=== PATIENT | male | born 1955 | race Caucasian/White ===

== ENCOUNTER → 2017-06-30 | Outpatient (CLI) | payer BC ==
--- NOTE | 2017-06-30 10:00 | US ---
EXAMINATION TYPE: US scrotum with doppler. DATE OF EXAM: 06/30/2017 COMPARISON: NONE CLINICAL HISTORY: 62-year-old male left N50.82 SCROTAL PAIN. Technique: Grayscale and color Doppler Duplex imaging performed of the scrotum. FINDINGS: TESTICLES: Right Testicle: 4.8 x 2.8 x3.2 cm Left Testicle: 4.4 x 2.5 x 2.9 cm Homogeneous echotexture of both testicles without hyperemia. There is satisfactory arterial and venou s flow demonstrated. EPIDIDYMIS HEAD: Right Epididymis: 0.8 cm Left Epididymis: 0.8 cm Presence of hydroceles: Yes, moderate-sized, right greater than left measuring up to 5.5 and 4.7 cm, respectively. Presence of varicoceles: no Extratesticular, hypoechoic area with hyperechoic inner focus of unknown etiology on the left measure s approximately 5 mm. IMPRESSION: 1. No sonographic evidence for testicular torsion or epididymoorchitis. 2. Moderate-sized right greater than left hydroceles. 3. Nonspecific 5 mm round area in the left hemiscrotum outside of the testicle with a central calcifi cation. Etiology uncertain. Possible phlebolith or calcifying scrotal la nena. Difficult to assess if i t is located in the epididymis in which case an adenomatoid tumor or other benign tumor is also possi ble. Consider follow-up in 3 months to reassess.
== END | disposition home or self-care (01) ==
LOC: RADUSWWP 08:08
PROVIDERS: ATTEND Family Medicine
DX: N43.3 Hydrocele, unspecified (principal); N50.82 Scrotal pain
CPT/HCPCS: 76870; 93975

== ENCOUNTER → 2017-09-29 | Outpatient (CLI) | payer BC ==
--- NOTE | 2017-09-29 13:05 | US ---
EXAMINATION TYPE: US scrotum with doppler. Grayscale and color Doppler Duplex imaging performed of t he scrotum. DATE OF EXAM: 09/29/2017 COMPARISON: Scrotal ultrasound June 30, 2017 CLINICAL HISTORY: R93.8 Abnormal ultrasound of scrotum; follow up EXAM MEASUREMENTS: TESTICLES: Right Testicle: 4.5 x 3.0 x 2.9 cm Left Testicle: 4.4 x 2.9 x 2.3 cm EPIDIDYMIS HEAD: Right Epididymis: 1.1 x 2.0 x 1.4 cm Left Epididymis: 3.3 x 3.3 x 1.6 cm Doppler performed to assess for testicular vascularity; good bilateral color flow and waveforms are s een. Right scrotal sac hydrocele is seen = 6.1 x 2.2 x 2.5cm with low level internal echoes in posterior p ortion. Small right testicular appendix is noted = 0.3 x 0.2 x 0.2cm. Left scrotal sac hydrocele is imaged = 1.4x 2.6 x 1.8cm. Multiple left epididymal head cysts are note d with largest = 1.5 x 1.3 x1.0cm. Posterior oval structure with internal calcification noted last US , that was area of interest, is elongated on today's US and appears as part of tubular vas deferens/e pididymis, and is compared to same area on right. There is persistent moderate-sized right scrotal fluid collection which is not completely anechoic si milar to prior. Color images are unremarkable. There is small left scrotal fluid collection or hydrocele redemonstrated. Left epididymis on current study is enlarged with several simple appearing cysts. Prior visualized left epididymis may have been incorrectly identified as normal epididymis as only 2 images show structure on prior study. Area of concern on prior exam within scrotum posterior to left testicle shows tubular shaped on current study , I suspect this is part of normal vas deferens. IMPRESSION: As above. No worrisome intratesticular mass. Persistent hydroceles. Area of concern on pr ior ultrasound left scrotal mass is presumed benign.
== END | disposition home or self-care (01) ==
LOC: RADUSWWP 10:50
PROVIDERS: ATTEND Family Medicine
DX: N50.3 Cyst of epididymis (principal); N43.3 Hydrocele, unspecified; N50.89 Other specified disorders of the male genital organs
CPT/HCPCS: 76870; 93975

== ENCOUNTER → 2017-11-02 | Outpatient (CLI) | payer BC ==
--- NOTE | 2017-11-02 14:53 | CT ---
EXAMINATION TYPE: CT shoulder LT wo con DATE OF EXAM: 11/02/2017 COMPARISON: NONE HISTORY: 62-year-old male with left shoulder pain; Osteoarthritis TECHNIQUE: Contiguous axial scanning of the left shoulder without IV contrast. Coronal and sagittal r econstructions performed. 3-D reconstructions generated on a dedicated independent workstation. CT DLP: 569.10 mGycm Automated exposure control for dose reduction was used. FINDINGS: Mild degenerative changes at the AC joint. There is lateral downward sloping of the acromion. No os a cromiale. 6 mm loose body in the superior glenohumeral joint. There is bulky inferior humeral head spurring wit h subchondral cystic change in both the superior and inferior glenoid. There is overall preserved gle noid bone stock with approximately 13 degrees of glenoid retroversion. No atrophy of the rotator cuff musculature. No significant joint effusion or bursal effusion. No acute fracture. Visualized left hemithorax is clear. IMPRESSION: 1. MODERATE TO SEVERE LEFT GLENOHUMERAL JOINT OSTEOARTHROSIS WITH PRESERVED GLENOID BONE STOCK AND 13 DEGREES OF GLENOID RETROVERSION. 2. PRESERVED VOLUME OF THE ROTATOR CUFF MUSCULATURE. 3. MILD DEGENERATIVE CHANGES AT THE AC JOINT BUT WITH PROMINENT DOWNSLOPING OF THE LATERAL ACROMION.
== END | disposition home or self-care (01) ==
LOC: RADCTMAIN 13:51
PROVIDERS: ATTEND Orthopaedic Surgery Sports Medicine
DX: M19.012 Primary osteoarthritis, left shoulder (principal); R93.7 Abnormal findings on diagnostic imaging of other parts of musculoskeletal system

== ENCOUNTER → 2017-11-24 | Outpatient (CLI) | payer BC ==
[2017-11-24 12:11] LABS: HCT 45.6 % (39.0-53.0); HGB 15.7 gm/dL (13.0-17.5); MCH 31.4 pg (25.0-35.0); MCHC 34.5 g/dL (31.0-37.0); Mean Platelet Volume 7.7; Platelet Count 246 k/uL (150-450); RBC 5.01 m/uL (4.30-5.90); RDW 11.9 % (11.5-15.5); WBC 6.6 k/uL (3.8-10.6)
[2017-11-24 12:15] LABS: Appearance,Urine Clear (Clear); Bilirubin,Urine Negative (Negative); Blood,Urine Negative (Negative); Color,Urine Yellow; Glucose,Urine (UA) Negative (Negative); Ketones,Urine Negative (Negative); Leukocyte Esterase,Urine Negative (Negative); Nitrite,Urine Negative (Negative); Protein,Urine Trace (Negative); Specific Gravity,Urine 1.023 (1.001-1.035); Urobilinogen,Urine <2.0 mg/dL (<2.0)
[2017-11-24 12:21] LABS: ALT 63 U/L (21-72); AST 36 U/L (17-59); Albumin 4.5 g/dL (3.5-5.0); Alkaline Phosphatase 91 U/L (38-126); Anion Gap 14 mmol/L; Blood Urea Nitrogen 23 mg/dL (9-20); Calcium 9.9 mg/dL (8.4-10.2); Carbon Dioxide 24 mmol/L (22-30); Chloride 104 mmol/L (98-107); Glucose 97 mg/dL (74-99); Potassium 4.4 mmol/L (3.5-5.1); Sodium 142 mmol/L (137-145); Total Bilirubin 0.7 mg/dL (0.2-1.3)
[2017-11-24 12:22] LABS: Partial Thromboplastin Time 22.4 sec (22.0-30.0); Prothrombin Time 9.8 sec (9.0-12.0)
== END | disposition home or self-care (01) ==
LOC: LABPAT 11:23
PROVIDERS: ATTEND Orthopaedic Surgery Sports Medicine
DX: Z01.818 Encounter for other preprocedural examination (principal)
CPT/HCPCS: 36415; 80053; 81003; 85027; 85610; 85730; 87070

== ENCOUNTER 2017-12-01 11:59 | Inpatient (IN) | payer BC ==
[2017-11-23 15:35] VITALS: BMI 29.6
[~2017-12-01 11:59] MED LIST: ACETAMINOPHEN TAB 500 MG TAB PO ONE; DEXAMETHASONE SOD PHOSPHATE 10 MG/ML 1 ML VIAL IV ONE; MELOXICAM 7.5 MG TAB PO ONE; MIDAZOLAM 2 MG/2 ML VIAL IV PRN; ONDANSETRON 4 MG/2 ML VIAL IVP ONE; ONDANSETRON ODT 4 MG TAB PO ONE; TRANEXAMIC ACID 1,000 MG in SODIUM CHLORIDE 0.9% 50 ML IVPB ONE; ceFAZolin IN SWFI 2 GM/20 ML SYRINGE IVP ONE
[2017-12-01] MEDS ORDERED: LACTATED RINGERS 1,000 ML IV ONE ×2 (12:09→17:01)
[2017-12-01] MEDS ORDERED: LIDOCAINE 1% 20 ML VIAL (10MG/ML) FOR IV START INTRADERMA ONE (12:09)
[2017-12-01] MEDS ORDERED: ROCURONIUM BROMIDE 10 MG/ML 10 ML VIAL IV ONE (14:50)
[2017-12-01] MEDS ORDERED: MIDAZOLAM 2 MG/2 ML VIAL ONE (14:50)
[2017-12-01] MEDS ORDERED: NEOSTIGMINE 1 MG/ML 10 ML VIAL ONE (14:50)
[2017-12-01] MEDS ORDERED: GLYCOPYRROLATE 0.2 MG/ML 2 ML VIAL ONE (14:50)
[2017-12-01] MEDS ORDERED: fentaNYL (PF) 50 MCG/ML 2 ML AMP ONE (14:50)
[2017-12-01] MEDS ORDERED: LIDOCAINE 2%-EPI 1:100,000 20 ML VIAL ONE (14:50)
[2017-12-01] MEDS ORDERED: PROPOFOL 10 MG/ML 20 ML VIAL IV ONE (14:50)
[2017-12-01] MEDS ORDERED: SUCCINYLCHOLINE CHLORIDE 100 MG/5 ML SYR IV ONE (14:50)
[2017-12-01] MEDS ORDERED: SODIUM CHLORIDE 0.9% 100 ML BAG ONE (14:50)
[2017-12-01] MEDS ORDERED: ROPIVACAINE 5 MG/ML 30 ML VIAL ONE (14:50)
[2017-12-01] MEDS ORDERED: ePHEDrine SULFATE/0.9% NACL/PF 50 MG/5 ML SYRINGE IV ONE (14:50)
[2017-12-01] MEDS ORDERED: LIDOCAINE 1% INJ 10MG/ML (20 ML MDV) ONE (14:50)
[2017-12-01] MEDS ORDERED: TRANEXAMIC ACID 1,000 MG/10 ML VIAL ONE (14:50)
[2017-12-01] MEDS ORDERED: VANCOMYCIN MISCELLANE STA (14:51)
[2017-12-01] MEDS ORDERED: VANCOMYCIN 1,000 MG VIAL MISCELLANE ONE (15:30)
[2017-12-01] MEDS ORDERED: hydrOXYzine PAMOATE 25 MG CAP PO PRN (17:17)
[2017-12-01] MEDS ORDERED: ONDANSETRON 4 MG/2 ML VIAL IVP PRN (17:17)
[2017-12-01] MEDS ORDERED: MORPHINE SULFATE 4 MG/ML SYRINGE IVP PRN ×3 (17:17)
[2017-12-01] MEDS ORDERED: METOCLOPRAMIDE 5 MG/ML 2 ML VIAL IVP PRN (17:17)
[2017-12-01] MEDS ORDERED: SENNOSIDES-DOCUSATE SODIUM 1 EACH TAB PO PRN (17:17)
[2017-12-01] MEDS ORDERED: TEMAZEPAM 15 MG CAP PO PRN (17:17)
[2017-12-01] MEDS ORDERED: PROCHLORPERAZINE SUPPOSITORY 25 MG SUPP RECTAL PRN (17:17)
[2017-12-01] MEDS ORDERED: diphenhydrAMINE 25 MG CAP PO PRN (17:17)
[2017-12-01] MEDS ORDERED: HYDROcodone/APAP 7.5-325MG 1 EACH TAB PO PRN (17:21)
[2017-12-01 17:23] VITALS: RESP 16
[2017-12-01] MEDS: MORPHINE SULFATE 4 MG/ML SYRINGE IV PRN ×2 (17:28→17:33)
--- NOTE | 2017-12-01 17:42 | XR ---
EXAMINATION TYPE: XR shoulder limited LT DATE OF EXAM: 12/01/2017 CLINICAL HISTORY: Postoperative x-ray. Left shoulder pain. TECHNIQUE: Single postoperative image of the left shoulder was obtained. COMPARISON: None. FINDINGS: Left humeral arthroplasty has been placed and appears in appropriate anatomic alignment. So ft tissue swelling and subcutaneous emphysema are noted.. IMPRESSION: Appropriate anatomic alignment of a left shoulder arthroplasty.
[2017-12-01] MEDS ORDERED: ROPIVACAINE 5 MG/ML 30 ML VIAL MISCELLANE ONE (17:46)
--- NOTE | 2017-12-01 18:00 | P.ONQ ---
Anesthesiology Proc Note - PNB - Peripheral Nerve Block Performed Left Interscalene Single Time Out Performed: Yes ([id number]) Procedure Start Time: 17:47 Procedure Stop Time: 17:59 Indication: Acute Post-Operative Pain, Dx/Pain Location (Left Shoulder Pain), Requested by physician Sedation Type: Awake Preparation: Sterile Prep Catheter: None Needle Size: 50mm (2") Needle Gauge: 21 Technique: Ultrasound Injectate: Other (see comment) (15ml 0.5% Ropivacaine + 15ml 2% Lidocaine w/ 1: 200,000 epi) Blood Aspirated: No Pain Paresthesia on Injection Noted: No Resistance on Injection: Normal Events: Uneventful and Well Tolerated
[2017-12-01] MEDS: LACTATED RINGERS 1,000 ML IV SCH (18:12)
--- NOTE | 2017-12-01 18:25 | OP ---
OPERATIVE REPORT DATE OF PROCEDURE: 12/01/2017 SURGEON: Larry Guzmán MD DICE PERSON: Max MOYA PREOPERATIVE DIAGNOSIS: Left shoulder osteoarthrosis. POSTOPERATIVE DIAGNOSIS: Left shoulder osteoarthrosis. PROCEDURES: 1. Left total shoulder arthroplasty. 2. Long head biceps tenodesis. ANESTHESIA: General endotracheal. ESTIMATED BLOOD LOSS: 200 mL. DRAINS: One deep drain. COMPLICATIONS: None apparent. DISPOSITION: Postanesthesia Care Unit. INDICATIONS: Mr. Mata is a very pleasant 62-year-old gentleman with long-standing left shoulder pain. Workup including x-rays revealed advanced osteoarthrosis of the left shoulder. At this point he felt that he has failed conservative management and he would like to proceed with operative intervention. The risks of the procedure were discussed with him in detail. These risks include but are not limited to risk of infection, nerve damage, bleeding, pain, instability in the shoulder, loosening of the implant and also risk of deep infection. There is also a risk of deep vein thrombosis which could lead to fatal pulmonary embolism. The patient understands the risks. All of his questions with regards to the risks of the procedure were answered to his satisfaction. Appropriate informed consent was obtained. DESCRIPTION OF THE PROCEDURE: The patient was identified in the preoperative holding area. Surgical site was marked by both the patient and myself. He was given 2 grams of Ancef IV for prophylactic purposes. He was then transferred to the operative suite. He was placed supine on the operative table. General anesthetic was then administered and dosed per the anesthesia department without apparent complication. Examination under anesthesia was then performed of the left shoulder. He had elevation to 110 degrees. External rotation at the side was to 30 degrees. The patient's left upper extremity was then prepped and draped in the usual sterile fashion. A standard surgical pause was then undertaken to ensure that we were operating on the correct site and that appropriate preoperative antibiotics had been given. All staff in the room were in agreement and we proceeded. The acromion AC joint, clavicle and coracoid were marked with a surgical pen. A planned incision starting at the level of the clavicle and extending distally over the deltopectoral interval approximately 1 cm lateral to the coracoid was marked with a surgical pen. The incision was then made with a 10 blade scalpel. Dissection was carried down sharply to the deltoid fascia. Hemostasis was achieved with electrocautery. The deltopectoral interval was then identified at the level of the clavicle. A small band retractor was then placed onto the proximal deltoid. I then released the deltoid fascia. This was done on the lateral aspect of the cephalic vein. The vein was preserved and left in its bed medially. The cephalic vein was protected throughout the entire case. I then identified the clavipectoral fascia. It was incised proximally to the level of the coracoacromial ligament. The coracoacromial ligament was left intact. I then used my finger to spread the interval between the conjoint tendon and the subscapularis. I felt for the axillary nerve, which was readily palpable. I then cleared the subacromial and subdeltoid spaces of bursal and scar tissue. I then utilized a Ramirez retractor to hold the deltoid and expose the humeral head. I then proceeded with release of the subscapularis and the anterior inferior shoulder capsule. The rotator cuff was inspected. It was found to be intact. The rotator interval was identified. The course of the biceps tendon was also identified. I then opened the sheath of the long head of the biceps. I then performed a tenodesis of the proximal aspect of the long head of the biceps tendon. This was done with 0 Vicryl interrupted suture. It was tenodesed to the surrounding fibrous tissue. I then released the rotator interval. It was released at the base of the coracoid and then out laterally. The subscapularis and the capsule were then released intratendinously. The subscapularis and capsule release extended distally in a lazy-S fashion approximately 1 cm medial to the biceps tendon. I then continued to release the capsule along the inferior neck in a vertical fashion to about the 6 o'clock position. Great care was taken to ensure that the capsule was always visualized as it was released to avoid injuring the axillary nerve. I then brought the [employer]kerson insurance verification representative with the arm externally rotated and abducted. I continued to release the capsule inferomedially to the 4 o'clock position. The inferior osteophytes were now removed as well. This was done with a rongeur. I then proceeded with preparation of the humerus. I removed all the goat's couch osteophytes. I then removed the subchondral plate from the superior aspect of the humeral head using a large rongeur. I then used the starter reamer to gain access to the humeral canal. This was 1 cm medial to the rotator cuff insertion and 1 cm posterior to the bicipital groove. I then prepared the humeral canal with hand reaming. I started with a 6 mm reamer and progressed incrementally until firm resistance was encountered at 14 mm. The reamer handle was then left in place. I then utilized a humeral resection guide set at 30 degrees of retrotorsion. The cutting block was set approximately 1-2 mm above the insertion of the rotator cuff. I then proceeded to osteotomize the humeral head with the oscillating saw. I then removed the resection guide and then completed the osteotomy. I then proceeded with trial stem placement. A trial size 14 was broached in the canal starting with a 6 mm broach and then broaching up to a 14 mm broach. This was also set at 30 degrees of retrotorsion. The 14 mm trial stem was then left in place. I then proceeded with a trial reduction. I started with a 46 x 18 x 43 head. This seemed to fit very nicely. The head fit opposite the glenoid. The rotator cuff was not tented. The internal rotation was to 90 degrees. Elevation was to 150 degrees and translation was one half of the head in neutral rotation and one quarter of the head inferiorly in 15-20 degrees of abduction. I then removed the trial head. The stem was left in place to protect the proximal humerus. I then proceeded with exposure of the glenoid. At this point a bone hook was used to pull the humerus out laterally. I inspected the joint for any loose bodies. The condition of the cuff was also again inspected. It was in excellent condition. The Bhattman retractor was then placed onto the posterior glenoid rim. The arm was placed in approximately 70-80 degrees of abduction and in slight flexion on the Wilkerson stand. I then proceeded to remove the hypertrophic labrum to definitively identify the actual glenoid. I then selected the size of the glenoid. A medium-sized glenoid seemed to fit very nicely. I then utilized a starter drill to make the centering hole. I then proceeded to ream the glenoid fossa. This was done with a medium-sized reamer. The reaming was then taken down to paprika signs. This provided a nice bleeding surface. There was a tiny bit of posterior inferior loss, and I preferentially took off slightly more anterior glenoid with the reaming. I then proceeded to place the glenoid drill holes. The peripheral drill holes were then placed and the center hole was also drilled as well. I placed the trial medium- sized glenoid and it fit very nicely onto the glenoid. I then proceeded with cementing. I Waterpik'd the wound and the bone. The drill holes were then packed with Raytec sponges. Antibiotic-impregnated cement was mixed on the back table by the mri assistant. The drill holes were then packed with cement utilizing a 20 mL syringe. These were packed very tightly. Cement was also placed on the posterior aspect of the real glenoid component. I then impacted the real glenoid component into place. It was a Biomet medium-sized pegged glenoid component with a Regenerex central peg. Excess cement was removed utilizing a freer elevator. Pressure was held onto the glenoid component until the cement had hardened. I then removed the Bhattman retractor. I then proceeded with humeral component trial reduction with the real glenoid in place. The 46 x 18 x 53 head was placed back onto the stem. Again this was taken through a trial range of motion. The head fit opposite the glenoid. The rotator cuff was not tented. Elevation was to 150 degrees, internal rotation to 90 degrees, and translation was one half of the head in neutral rotation, one quarter of the head in 15-20 degrees of abduction. I then had the tour sales representative open a 46 x 18 x 53 real head and a 14 Mini Biomet stem. The stem was then impacted into the canal in 30 degrees of retrotorsion. The real head was then impacted onto the stem. The shoulder was reduced. I then proceeded with closure. The wound was again thoroughly irrigated with sterile saline solution with antibiotic added. The rotator interval was closed with 0 Vicryl interrupted suture. The subscapularis and anterior capsule was closed with #2 FiberWire interrupted suture. A deep drain was then placed and brought out superiorly away from the incision. I also used my finger to palpate the axillary nerve, which was intact. I then placed approximately 500 mg of vancomycin powder deep in the wound. I then loosely closed the deltopectoral interval with 0 Vicryl interrupted suture. The wound was again thoroughly irrigated with sterile saline solution with antibiotic added. The remaining 500 mg of vancomycin powder was then placed subcutaneously. The subcutaneous tissue was then closed with 2-0 Vicryl interrupted suture and the skin was closed with a running 3-0 Quill suture. A sterile compressive dressing was applied. The patient's left upper extremity was placed into a shoulder immobilizer. All sponge and needle counts were deemed correct prior to closure. The patient tolerated the procedure without apparent complication. He was transferred to the recovery room in stable condition. MMODL / IJN: [id number] /
[2017-12-01 19:47] LABS: Basophils % (A) 0 %; Eosinophils % (A) 0 %; HCT 44.8 % (39.0-53.0); HGB 15.4 gm/dL (13.0-17.5); Lymphocytes # (A) 0.5 k/uL (1.0-4.8); Lymphocytes % (A) 4 %; MCH 31.5 pg (25.0-35.0); MCHC 34.4 g/dL (31.0-37.0); MCV 91.5 fL (80.0-100.0); Mean Platelet Volume 7.3; Monocytes # (A) 0.3 k/uL (0-1.0); Monocytes % (A) 3 %; Neutrophils # (A) 12.6 k/uL (1.3-7.7); Neutrophils % (A) 93 %; Platelet Count 251 k/uL (150-450); RBC 4.89 m/uL (4.30-5.90); RDW 11.8 % (11.5-15.5); WBC 13.6 k/uL (3.8-10.6)
[2017-12-01] MEDS: DOXYCYCLINE MONOHYDRATE 100 MG CAPSULE PO SCH (20:00)
[2017-12-02] MEDS: ceFAZolin IN SWFI 2 GM/20 ML SYRINGE IVP SCH ×2 (00:14→09:00)
[2017-12-02] MEDS: HYDROcodone/APAP 7.5-325MG 1 EACH TAB PO PRN ×3 (02:49→14:49)
[2017-12-02] MEDS: LACTATED RINGERS 1,000 ML IV SCH (05:13)
--- NOTE | 2017-12-02 08:14 | P.DS ---
Providers Date of admission: 12/01/17 11:59 Expected date of discharge: 12/02/17 Attending physician: Larry Guzmán Consults: 12/01/17 17:17 Consult Physician Routine Consulting Provider: Becky Stevens Consult Reason/Comments: post op medical management Do you want consulting provider notified?: Yes 12/01/17 17:59 Consult Physician Routine Consulting Provider: Anne Wilson Consult Reason/Comments: medical management Do you want consulting provider notified?: Yes Primary care physician: Becky Stveens - Discharge Diagnosis(es) (1) Osteoarthritis of left shoulder Current Visit: Yes Status: Acute Hospital Course: This is a 62-year-old male who has history of severe degenerative arthritis of the left shoulder and presented to discuss surgical options. After discussion and consideration the patient elects to proceed with total shoulder arthroplasty. The pt is seen preoperatively by their family physician and cleared for surgery. The patient is admitted to [facility] on 12/01/2017 for total left shoulder arthroplasty. The patient is doing well postoperatively. Vital signs and hemoglobin are stable. The patient is able to get up out of bed independently and is ambulating without assistance. Pain is well controlled. Patient is discharged to home on postoperative day #1 in good condition. Please see med rec for accurate list of home medications. Patient Condition at Discharge: Good Plan - Discharge Summary Discharge Rx Participant: Yes New Discharge Prescriptions: New Docusate [Colace] 100 mg PO BID #60 capsule Doxycycline Hyclate 100 mg PO BID #10 tab HYDROcodone/APAP 7.5-325MG [[place] 7.5-325] 1 - 2 each PO Q6HR PRN #90 tab PRN Reason: Pain No Action Multivitamins, Thera [Multivitamin] 1 tab PO DAILY Vitamin B Complex 1 cap PO DAILY Phosphorus 1 tab PO DAILY Magnesium 200 mg PO DAILY Krill Oil 500 mg PO DAILY Ginseng 100 mg PO DAILY Ginkgo Biloba 500 mg PO DAILY Flaxseed Oil [[place]-3 Flaxseed Oil] 1,000 mg PO DAILY Discharge Medication List Multivitamins, Thera [Multivitamin] 1 tab PO DAILY 09/15/15 [History] Vitamin B Complex 1 cap PO DAILY 09/15/15 [History] Flaxseed Oil [[place]-3 Flaxseed Oil] 1,000 mg PO DAILY 11/23/17 [History] Ginkgo Biloba 500 mg PO DAILY 11/23/17 [History] Ginseng 100 mg PO DAILY 11/23/17 [History] Krill Oil 500 mg PO DAILY 11/23/17 [History] Magnesium 200 mg PO DAILY 11/23/17 [History] Phosphorus 1 tab PO DAILY 11/23/17 [History] Docusate [Colace] 100 mg PO BID #60 capsule 12/01/17 [Rx] Doxycycline Hyclate 100 mg PO BID #10 tab 12/01/17 [Rx] HYDROcodone/APAP 7.5-325MG [[place] 7.5-325] 1 - 2 each PO Q6HR PRN #90 tab [Rx] Follow up Appointment(s)/Referral(s): Larry Guzmán MD [STAFF PHYSICIAN] - 10 Days Activity/Diet/Wound Care/Special Instructions: maintain sling keep wound clean and dry take meds as directed f/u with Dr. Guzmán in office Discharge Disposition: HOME SELF-CARE
[2017-12-02] MEDS ORDERED: HYDROmorphone 2 MG TAB PO PRN ×2 (08:58→08:59)
[2017-12-02] MEDS ORDERED: HYDROmorphone 4 MG TABLET PO PRN (08:59)
[2017-12-02] MEDS: DOXYCYCLINE MONOHYDRATE 100 MG CAPSULE PO SCH (09:00)
[2017-12-02 14:43] VITALS: BP 115/75; PULSE 97; TEMP 98.7
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
== END 2017-12-02 16:17 | disposition home or self-care (01) | DRG 483 ==
LOC: 2ORMAIN 11:59 → 3SUR 16:54
PROVIDERS: ADMIT Orthopaedic Surgery Sports Medicine; ATTEND Orthopaedic Surgery Sports Medicine
PROC: 0RRK0JZ Replacement of Left Shoulder Joint with Synthetic Substitute, Open Approach (ICD-10-PCS; principal; 2017-12-01 15:00)
DX: M19.012 Primary osteoarthritis, left shoulder (principal); K57.90 Diverticulosis of intestine, part unspecified, without perforation or abscess without bleeding; D72.829 Elevated white blood cell count, unspecified; R00.0 Tachycardia, unspecified; H91.90 Unspecified hearing loss, unspecified ear; Z96.651 Presence of right artificial knee joint; Z87.891 Personal history of nicotine dependence; Z86.718 Personal history of other venous thrombosis and embolism; Z87.01 Personal history of pneumonia (recurrent); Z79.899 Other long term (current) drug therapy; Z80.0 Family history of malignant neoplasm of digestive organs; Z82.49 Family history of ischemic heart disease and other diseases of the circulatory system; Z83.3 Family history of diabetes mellitus
CPT/HCPCS: 64415; 85025; 88300

== ENCOUNTER → 2018-08-29 | Outpatient (CLI) | payer BC ==
[2018-08-29 16:44] LABS: MCH 30.6 pg (25.0-35.0); MCHC 32.8 g/dL (31.0-37.0); MCV 93.5 fL (80.0-100.0); Platelet Count 265 k/uL (150-450); RBC 5.24 m/uL (4.30-5.90); RDW 12.2 % (11.5-15.5); WBC 8.2 k/uL (3.8-10.6)
[2018-08-29 16:53] LABS: ALT 46 U/L (21-72); AST 29 U/L (17-59); Albumin 4.6 g/dL (3.5-5.0); Alkaline Phosphatase 83 U/L (38-126); Anion Gap 12 mmol/L; Blood Urea Nitrogen 18 mg/dL (9-20); Calcium 9.7 mg/dL (8.4-10.2); Carbon Dioxide 23 mmol/L (22-30); Chloride 107 mmol/L (98-107); Glucose 94 mg/dL (74-99); Potassium 4.1 mmol/L (3.5-5.1); Sodium 142 mmol/L (137-145); Total Bilirubin 0.6 mg/dL (0.2-1.3); Total Protein 7.4 g/dL (6.3-8.2)
[2018-08-29 16:56] LABS: INR 0.9 (<1.2); Partial Thromboplastin Time 22.9 sec (22.0-30.0); Prothrombin Time 9.9 sec (9.0-12.0)
[2018-08-29 17:10] LABS: Appearance,Urine Clear (Clear); Bilirubin,Urine Negative (Negative); Blood,Urine Negative (Negative); Color,Urine Yellow; Glucose,Urine (UA) Negative (Negative); Ketones,Urine Trace (Negative); Leukocyte Esterase,Urine Negative (Negative); Nitrite,Urine Negative (Negative); Protein,Urine Negative (Negative); Specific Gravity,Urine 1.019 (1.001-1.035); Urobilinogen,Urine <2.0 mg/dL (<2.0)
== END | disposition home or self-care (01) ==
LOC: LABPAT 15:49
PROVIDERS: ATTEND Orthopaedic Surgery Sports Medicine
DX: Z01.818 Encounter for other preprocedural examination (principal); Z01.812 Encounter for preprocedural laboratory examination
CPT/HCPCS: 36415; 80053; 81003; 85027; 85610; 85730; 87070; 93005

== ENCOUNTER → 2018-09-08 | Outpatient (CLI) | payer BC ==
--- NOTE | 2018-09-08 12:30 | CT ---
EXAMINATION TYPE: CT chest w con DATE OF EXAM: 09/08/2018 COMPARISON: Chest CT July 05, 2016 HISTORY: Follow up to lung nodule CT DLP: 383.8 mGycm. Automated Exposure Control for Dose Reduction was Utilized. TECHNIQUE: CT scan of the thorax is performed following with IV Contrast, patient injected with 100 mL of Isovue 300. FINDINGS: LUNGS: Previously visualized 4 mm nodule right midlung anteriorly is stable or less prominent axial i mage 35. Previously visualized 3 mm nodule just superior posterior to this is less prominent measurin g 2 mm current study axial image 34. No new greater than 4 mm parenchymal nodules or masses are ident ified. No pleural effusion or pneumothorax is seen bilaterally. MEDIASTINUM: There are no greater than 1 cm hilar or mediastinal lymph nodes. No cardiomegaly or pe ricardial effusion is seen. . Coronary artery calcification is noted. OTHER: Round hypodense lesions scattered throughout the liver consistent with simple thin-walled cyst s are redemonstrated. Left adrenal mass measures 1.6 x 1.3 cm current study slightly larger from prio r study. Moderate multilevel spurring in thoracic spine is present. There is partial visualization of metallic hardware from interval left shoulder surgery. IMPRESSION: 1. Stable or less prominent right midlung nodules consistent with benign postinflammatory process. No new suspicious nodules or lymph nodes. 2. Slightly larger nonspecific 1.6 cm left adrenal mass. Consider adrenal protocol CT/MRI follow-up t o further evaluate.
== END | disposition home or self-care (01) ==
LOC: RADCTMAIN 11:31
PROVIDERS: ATTEND Family Medicine
DX: R91.8 Other nonspecific abnormal finding of lung field (principal)
CPT/HCPCS: 71260; Q9967

== ENCOUNTER → 2018-09-13 | Outpatient (CLI) | payer BC ==
--- NOTE | 2018-09-13 09:43 | CT ---
EXAMINATION TYPE: CT shoulder RT wo con DATE OF EXAM: 09/13/2018 COMPARISON: None HISTORY: 63-year-old male Pre op replacement TECHNIQUE: Contiguous axial scanning of the right shoulder without IV contrast. Coronal and sagittal reconstructions performed. 3-D reconstructions generated on a dedicated independent workstation. CT DLP: 478.8 mGycm Automated exposure control for dose reduction was used. FINDINGS: Moderate to severe degenerative joint space narrowing with marginal spurring and subchondral cystic c hange at the acromioclavicular joint. Mild capsular hypertrophy is also present. Degenerative changes at the glenohumeral joint with joint space narrowing and prominent marginal spur ring. There is subchondral cystic change along the inferior half of the glenoid with possible 9 mm in traosseous ganglion cyst along the anterior inferior corner of the glenoid. Otherwise, overall glenoid bone stock is preserved. Slight 9 to 10 degrees of glenoid retroversion. No acute fracture, subluxation, or dislocation. Preserved bulk of the rotator cuff musculature 7 to 8 mm loose body material within the subcoracoid recess. Visualized right hemithorax is clear. IMPRESSION: 1. ADVANCED GLENOHUMERAL JOINT OSTEOARTHROSIS. THERE IS A 9 MM PROBABLE INTRAOSSEOUS GANGLION CYST AL TIMOTHY THE ANTERIOR INFERIOR CORNER OF THE GLENOID BUT OTHERWISE OVERALL PRESERVED GLENOID BONE STOCK. 2. SLIGHT 9 TO 10 DEGREES OF GLENOID RETROVERSION. 3. PRESERVED ROTATOR CUFF MUSCLE BULK. 4. MODERATE TO SEVERE AC JOINT OA.
== END | disposition home or self-care (01) ==
LOC: RADCTMAIN 07:53
PROVIDERS: ATTEND Orthopaedic Surgery Sports Medicine
DX: M19.011 Primary osteoarthritis, right shoulder (principal)

== ENCOUNTER 2018-09-20 08:43 | Inpatient (IN) | payer BC ==
[~2018-09-20 08:43] MED LIST changes: +LIDOCAINE 1% 20 ML VIAL (10MG/ML) FOR IV START INTRADERMA PRN; +MIDAZOLAM (PF) 2 MG/2 ML VIAL IV PRN; -MIDAZOLAM 2 MG/2 ML VIAL IV PRN; -ONDANSETRON ODT 4 MG TAB PO ONE; +TRANEXAMIC ACID 1,000 MG in SODIUM CHLORIDE 0.9% 100 ML IVPB ONE; -TRANEXAMIC ACID 1,000 MG in SODIUM CHLORIDE 0.9% 50 ML IVPB ONE; -ceFAZolin IN SWFI 2 GM/20 ML SYRINGE IVP ONE
[2018-09-20] MEDS ORDERED: HYDROcodone/APAP 5-325MG 1 EACH TAB PO PRN ×2 (12:55)
[2018-09-20] MEDS ORDERED: HYDROmorphone 0.5 MG/0.5 ML SYRINGE IVP PRN ×2 (12:55)
[2018-09-20] MEDS ORDERED: diphenhydrAMINE 25 MG CAP PO PRN (12:55)
[2018-09-20] MEDS ORDERED: TEMAZEPAM 15 MG CAP PO PRN (12:55)
[2018-09-20] MEDS ORDERED: PROCHLORPERAZINE SUPPOSITORY 25 MG SUPP RECTAL PRN (12:55)
[2018-09-20] MEDS ORDERED: ONDANSETRON 4 MG/2 ML VIAL IVP PRN (12:55)
[2018-09-20] MEDS ORDERED: HYDROmorphone 1 MG/ML 1 ML SYRINGE IVP PRN (12:55)
[2018-09-20] MEDS ORDERED: hydrOXYzine PAMOATE 25 MG CAP PO PRN (12:55)
[2018-09-20] MEDS ORDERED: METOCLOPRAMIDE 5 MG/ML 2 ML VIAL IVP PRN (12:55)
[2018-09-20] MEDS ORDERED: SENNOSIDES-DOCUSATE SODIUM 1 EACH TAB PO PRN (12:55)
[2018-09-20] MEDS ORDERED: HYDROcodone/APAP 7.5-325MG 1 EACH TAB PO PRN ×2 (12:58)
[2018-09-20] MEDS: LACTATED RINGERS 1,000 ML IV SCH ×2 (13:29→21:44)
[2018-09-20] MEDS: ceFAZolin IN SWFI 2 GM/20 ML SYRINGE IVP ONE ×2 (16:02→16:27)
[2018-09-20] MEDS ORDERED: fentaNYL (PF) 50 MCG/ML 2 ML AMP ONE (16:02)
[2018-09-20] MEDS ORDERED: HYDROmorphone (PF) 1 MG/ML ONE (16:02)
[2018-09-20] MEDS ORDERED: MIDAZOLAM 2 MG/2 ML VIAL ONE (16:02)
[2018-09-20] MEDS ORDERED: ROPIVACAINE 5 MG/ML 30 ML VIAL ONE (16:02)
[2018-09-20] MEDS ORDERED: ROCURONIUM BROMIDE 10 MG/ML 10 ML VIAL IV ONE (16:02)
[2018-09-20] MEDS ORDERED: SUCCINYLCHOLINE CHLORIDE 100 MG/5 ML SYR IV ONE ×2 (16:02)
[2018-09-20] MEDS ORDERED: NEOSTIGMINE 1 MG/ML 10 ML VIAL ONE (16:02)
[2018-09-20] MEDS ORDERED: PROPOFOL 10 MG/ML 20 ML VIAL IV ONE (16:02)
[2018-09-20] MEDS ORDERED: GLYCOPYRROLATE 0.2 MG/ML 2 ML VIAL ONE (16:02)
[2018-09-20] MEDS ORDERED: LIDOCAINE 1% INJ 10MG/ML (20 ML MDV) ONE (16:02)
[2018-09-20] MEDS ORDERED: TRANEXAMIC ACID 1,000 MG/10 ML VIAL ONE (16:02)
[2018-09-20] MEDS ORDERED: SODIUM CHLORIDE 0.9% 100 ML BAG ONE (16:02)
[2018-09-20] MEDS ORDERED: ceFAZolin 3,000 MG in SODIUM CHLORIDE 0.9% IRRIGATIO 3,000 ML IRRIGATION ONE (16:44)
[2018-09-20] MEDS ORDERED: LACTATED RINGERS 1,000 ML IV ONE ×2 (16:58)
[2018-09-20] MEDS ORDERED: VANCOMYCIN 1,000 MG VIAL MISCELLANE ONE (17:05)
[2018-09-20] MEDS: HYDROmorphone 1 MG/ML 1 ML SYRINGE IVP ONE ×2 (18:29→18:34)
--- NOTE | 2018-09-20 18:46 | XR ---
Right shoulder single view. History hardware placement. Technique single view. FINDINGS: There is a right shoulder prosthesis. Components appear in anatomic position. IMPRESSION: No complicating process seen.
[2018-09-20] MEDS: fentaNYL (PF) 50 MCG/ML 2 ML AMP IV PRN ×2 (18:52→18:58)
[2018-09-20] MEDS ORDERED: ROPIVACAINE 5 MG/ML 30 ML VIAL MISCELLANE ONE (19:34)
[2018-09-20 20:29] VITALS: BMI 29.5
[2018-09-20] MEDS: ACETAMINOPHEN TAB 500 MG TAB PO PRN (21:13)
[2018-09-20] MEDS: DOXYCYCLINE 100 MG CAP PO SCH (21:14)
[2018-09-20] MEDS: HEPARIN SODIUM,PORCINE 5,000 UNIT/ML 1 ML VIAL SQ SCH (22:38)
[2018-09-21] MEDS: ACETAMINOPHEN TAB 500 MG TAB PO PRN ×4 (00:02→12:15)
[2018-09-21] MEDS: LACTATED RINGERS 1,000 ML IV SCH ×3 (00:03→11:37)
[2018-09-21 00:39] VITALS: PULSE 99
--- NOTE | 2018-09-21 07:04 | P.ONQ ---
Anesthesiology Proc Note - PNB - Peripheral Nerve Block Performed Right Interscalene Single Time Out Performed: Yes Procedure Start Time: : Procedure Stop Time: :34 Indication: Acute Post-Operative Pain, Requested by physician Sedation Type: Sedate with meaningful contact maintained Preparation: Sterile Prep Position: Supine Needle Size: 50mm (2") Needle Gauge: 21 Technique: Ultrasound Injectate: 0.5% Ropivacaine (see comment for volume) (ropi .5% 30cc) Blood Aspirated: No Pain Paresthesia on Injection Noted: No Resistance on Injection: Normal Events: Uneventful and Well Tolerated
[2018-09-21 08:12] LABS: Basophils % (A) 0 %; Eosinophils # (A) 0.1 k/uL (0-0.7); Eosinophils % (A) 1 %; HCT 40.3 % (39.0-53.0); HGB 13.2 gm/dL (13.0-17.5); Lymphocytes % (A) 12 %; MCH 31.2 pg (25.0-35.0); MCHC 32.8 g/dL (31.0-37.0); Mean Platelet Volume 7.4; Monocytes # (A) 0.9 k/uL (0-1.0); Monocytes % (A) 11 %; Neutrophils # (A) 6.2 k/uL (1.3-7.7); Neutrophils % (A) 74 %; Platelet Count 226 k/uL (150-450); RBC 4.24 m/uL (4.30-5.90); RDW 12.3 % (11.5-15.5); WBC 8.4 k/uL (3.8-10.6)
[2018-09-21 08:19] LABS: Anion Gap 4 mmol/L; Blood Urea Nitrogen 15 mg/dL (9-20); Calcium 8.9 mg/dL (8.4-10.2); Carbon Dioxide 28 mmol/L (22-30); Chloride 104 mmol/L (98-107); Glucose 119 mg/dL (74-99); Sodium 136 mmol/L (137-145)
[2018-09-21] MEDS: HEPARIN SODIUM,PORCINE 5,000 UNIT/ML 1 ML VIAL SQ SCH (08:37)
[2018-09-21] MEDS: DOXYCYCLINE 100 MG CAP PO SCH (08:37)
[2018-09-21 09:11] VITALS: BP 143/80; RESP 16; TEMP 98.4
--- NOTE | 2018-09-21 09:24 | P.DS ---
Providers Date of admission: 09/20/18 12:40 Expected date of discharge: 09/21/18 Attending physician: Larry Guzmán Consults: 09/20/18 12:55 Consult Physician Routine Consulting Provider: Anne Wilson Consult Reason/Comments: post op medical management Do you want consulting provider notified?: Yes Primary care physician: Becky Stevens - Discharge Diagnosis(es) (1) Osteoarthritis of right shoulder Patient was admitted to the OR on 09/20/2018 to undergo a right total shoulder arthroplasty. He had failed conservative measures as an outpatient and desired to proceed with elective surgery after given informed consent. He underwent the above procedure which he tolerated well without complication. Postoperative hospital course has remained without complication. On day of discharge he is afebrile, vital signs stable, labs within acceptable ranges, tolerating by mouth meds and diet, voiding without difficulty, positive flatus, denies abdominal pain or calf pain, pain is controlled on oral pain medication and has no new complaints. Wound is benign, neurovascular status is intact, calf is soft and nontender, abdomen soft and nontender. Review of systems is negative for numbness, tingling, fever, chills, chest pain, shortness breath, nausea, vomiting, dizziness, headaches, slurred speech or other Current Visit: Yes Status: Acute Procedures: Right TSA Patient Condition at Discharge: Good Plan - Discharge Summary Discharge Rx Participant: Yes New Discharge Prescriptions: New Docusate [Colace] 100 mg PO BID #60 capsule Doxycycline Hyclate 100 mg PO BID #10 tab HYDROcodone/APAP 7.5-325MG [[place]man 7.5-325] 1 - 2 each PO Q6HR PRN #56 tab PRN Reason: Pain No Action Multivitamins, Thera [Multivitamin] 1 tab PO DAILY Magnesium 200 mg PO DAILY Krill Oil 1,000 mg PO DAILY Ginkgo Biloba 500 mg PO DAILY Acetaminophen [Tylenol Extra Strength] 1,000 mg PO DIRECTED PRN PRN Reason: Pain Discharge Medication List Multivitamins, Thera [Multivitamin] 1 tab PO DAILY 09/15/15 [History] Ginkgo Biloba 500 mg PO DAILY 11/23/17 [History] Krill Oil 1,000 mg PO DAILY 11/23/17 [History] Magnesium 200 mg PO DAILY 11/23/17 [History] Acetaminophen [Tylenol Extra Strength] 1,000 mg PO DIRECTED PRN 09/13/18 [ History] Docusate [Colace] 100 mg PO BID #60 capsule 09/21/18 [Rx] Doxycycline Hyclate 100 mg PO BID #10 tab 09/21/18 [Rx] HYDROcodone/APAP 7.5-325MG [[place] 7.5-325] 1 - 2 each PO Q6HR PRN #56 tab [Rx] Follow up Appointment(s)/Referral(s): Larry Guzmán MD [STAFF PHYSICIAN] - 10/06/18 1:15 pm Activity/Diet/Wound Care/Special Instructions: Keep wound clean and dry Take meds as directed Follow-up with Dr. Guzmán in office Maintain sling Nonweightbearing May shower in 3 days if no bleeding Discharge Disposition: HOME WITH HOME HEALTH SERVICES
--- NOTE | 2018-09-21 10:03 | OP ---
OPERATIVE REPORT DATE OF PROCEDURE: 09/20/2018 SURGEON: Larry Guzmán MD. DRILLER HAND: GRIFFIN Lopez. PREOPERATIVE DIAGNOSIS: Right shoulder osteoarthrosis. POSTOPERATIVE DIAGNOSIS: Right shoulder osteoarthrosis. OPERATION: 1. Right total shoulder arthroplasty. 2. Right shoulder proximal long head biceps tenodesis. ANESTHESIA: General endotracheal. ESTIMATED BLOOD LOSS: 300 mL. DRAINS: One deep drain. COMPLICATIONS: None apparent. DISPOSITION: Postanesthesia care unit. INDICATIONS: Mr. Mata is a very pleasant 63-year-old male with longstanding right shoulder pain. Workup including x-rays revealed advanced osteoarthrosis of the right shoulder. At this point, it is felt that he has failed conservative management and he would like to proceed with operative intervention. The risks of procedure were discussed with him in detail. These risks include, but are not limited to risk of infection, nerve damage, bleeding, pain, instability in the shoulder, loosening of the implants and deep infection. There is also small risk of deep vein thrombosis which could lead to fatal pulmonary embolism. The patient understood the risks. All of his questions with regards to the risks of procedure were answered to his satisfaction. An appropriate informed consent was obtained. DESCRIPTION OF PROCEDURE: The patient was identified in the preoperative holding area. Surgical sites marked by both the patient and myself. He was given 2 grams of Ancef IV for prophylactic purposes. He was then transferred to the operative suite. He was placed supine on the operating room table. General anesthetic was administered and dosed per the anesthesia department without apparent complication. Examination under anesthesia was then performed of the right shoulder. He had elevation to 120 degrees. External rotation at the side was 30 degrees. The patient was then placed into the beach chair position well-padded in preparation for surgery. Great care was taken to ensure that his neck was in neutral alignment well-padded and maintained that way throughout the operative procedure. His legs were appropriately padded as well. The patient's right upper extremity was then prepped and draped in usual sterile fashion. Standard surgical pause undertaken to ensure that we were operating the correct site and that appropriate preoperative antibiotics were given. All staff in room in agreement and we proceeded. The acromion, AC joint, clavicle and the coracoid were marked with surgical pen. A planned incision starting at the level of the clavicle and extending distally over the deltopectoral interval approximately 1 cm lateral to the coracoid was marked with surgical pen. The incision was then made with a 10 blade scalpel. Dissection carried down sharply to the deltoid fascia. The deltopectoral interval was then identified at the level of the clavicle. A small band retractor was placed onto the proximal deltoid. I then released the deltoid fascia on the lateral aspect of the cephalic vein. The vein was left in its bed medially. The cephalic vein was protected throughout the entire case. I then identified the clavipectoral fascia. It was incised proximally to the level of the coracoacromial ligament. The coracoacromial ligament was left intact. I then used my finger to spread the interval between the conjoint tendon and the subscapularis. I felt for the axillary nerve which was readily palpable. I then cleared the subacromial and subdeltoid spaces of bursal and scar tissue. I then utilized a Ramirez retractor to hold the deltoid and expose the humeral head. I then proceeded with release of the subscapularis in the anterior inferior shoulder capsule. The rotator cuff was inspected. It was found to be intact. The rotator interval was identified. The course of the biceps tendon was also identified. I then released the rotator interval. At this point, I did tenodesis the biceps to the surrounding fascia just at the distal aspect of the bicipital groove. The rotator interval was released. It was released at the base of the coracoid and then out laterally. The subscapularis and the capsule were then released intratendinously. Subscapularis and capsule release extended distally in a lazy-S fashion approximately 1 cm medial to the biceps tendon. I then continued to release the capsule along the inferior neck in a vertical fashion to about the 6 o'clock position. Great care was taken to ensure that the capsule was always visualized. This was released to avoid injuring the axillary nerve. I then brought the Wilkerson stem dryer maintainer with the arm externally rotated and abducted. We continued to release the capsule inferomedially to the 4 o'clock position. The inferior osteophytes were now removed as well. This was done with a rongeur. I then proceeded with the preparation of the humerus. I removed all the osteophytes. I then removed the subchondral plate from the superior aspect of the humeral head utilizing a large rongeur. I then used the starting reamer to gain access to the humeral canal. This was 1 cm medial to the rotator cuff insertion and 1 cm posterior to the bicipital groove. I then prepared the humeral canal with hand reaming. I started with a 6 mm reamer and progressed incrementally until firm resistance was encountered at 14 mm. The reamer handle was then left in place. I then utilized a humeral resection guide. This was set at 30 degrees of retrotorsion. The cutting block was set 1 to 2 mm above the insertion of the rotator cuff. I then proceeded to osteotomize the head with an oscillating saw. I removed the resection guide and then completed the osteotomy. I then proceeded with trial stem placement. I started broaching the canal with an 8 mm broach and then up to a 14 mm broach. The 14 mm trial stem was then left in place. I then proceeded with trial reduction. I started with a 46 x 18 x 53 head. This fit very nicely. The head fit opposite the glenoid. The rotator cuff was not tented. Internal rotation was at 90 degrees. elevation was 150 degrees and translation was one half of the head in neutral rotation and inferiorly one quarter of the head in 15 to 20 degrees of abduction. I then removed the trial head. The stem was left in place to protect the proximal humerus. I then proceeded with exposure of the glenoid. At this point, I did release the biceps tendon from the supraglenoid tubercle. A bone hook was then used to pull the humerus out laterally. I inspected the joint for any loose bodies. The condition of the cuff was again inspected. It was in excellent condition. The Bhattman retractor was then placed on the posterior glenoid rim. The arm was placed in approximately 70 degrees of abduction and in slight flexion on a Wilkerson stand. I then proceeded to remove the hypertrophic labrum to definitively identify the actual glenoid. I then selected the size of the glenoid. A medium-sized glenoid seemed to fit very nicely. I then utilized a starting drill to make the centering hole. I then proceeded to ream the glenoid fossa. This was done with a medium size reamer. The reaming was taken down to paprika signs. Minimal reaming was done as this preserved the subchondral bone. There was a tiny bit of posterior inferior glenoid loss. I preferentially took off slightly more anterior glenoid with the reaming. I then proceeded to place the glenoid drill holes. The peripheral drill holes were then placed in the center hole was also drilled as well. I then placed a trial size medium glenoid and it fit very nicely onto the glenoid. I then proceed with cementing. I waterpik'd the wound and the bone. The drill holes were packed with Ray-Beryl sponges. The cement was then mixed on the back table by the speech language pathology assistant. The peripheral drill holes were packed with cement utilizing a 20 mL syringe. These were packed very tightly. Cement was also placed on the posterior aspect of the real glenoid component. I then impacted the real glenoid component into place. It was a Biomet medium-sized pegged glenoid component with the Regenerex middle peg. Excess cement was removed utilizing a freer elevator. Pressure was held on the glenoid component until the cement had hardened. I then removed the retractor. We then proceeded with humeral component trial reduction with the real glenoid impacted. The 46 x 18 x 53 head was then placed back onto the stem. Again this was taken through a trial. The head fit opposite the glenoid. The rotator cuff was not tented. Elevation was 150 degrees and internal rotation was to 90 degrees and translation was one half of the head in neutral rotation one quarter of the head in 15 to 20 degrees of abduction. I then had the inside outside sales representative open a 46 x 18 x 53 real head and in a size 14 Biomet mini stem. The stem was then impacted into the canal and 30 degrees of retrotorsion. The real head was then impacted onto the stem. The shoulder was reduced. I then proceeded with closure. Again the wound was thoroughly irrigated with sterile saline solution with antibiotic added. The rotator interval was closed with 0 Vicryl interrupted suture. The subscapularis was closed with interrupted #2 FiberWire suture. A deep drain was then placed and brought out superiorly away from the incision. Approximately 500 mg of vancomycin powder was placed deep into the wound. The deltopectoral interval was then loosely reapproximated and closed with 0 Vicryl interrupted suture. The wound again was thoroughly irrigated with sterile saline solution via pulse lavage. The remaining 500 mg of vancomycin powder were then placed in the subcutaneous layer. The subcutaneous tissue was then closed with 2-0 Vicryl interrupted suture. The skin was closed with a running 3-0 Quill suture. Sterile compressive dressing was then applied. The patient's right upper extremity was placed into a sling. All sponge and needle counts were deemed correct prior to closure. The patient tolerated the procedure without apparent complication. He was transferred to the recovery room in stable condition. DAISY / SHANE: [id number] /
[2018-09-21] MEDS: ceFAZolin IN SWFI 2 GM/20 ML SYRINGE IVP SCH ×2 (10:04)
--- NOTE | 2018-09-21 10:06 | CONS ---
CONSULTATION DATE OF SERVICE: 09/20/2018 REASON FOR CONSULTATION: Advice regarding hyperlipidemia. Other medical issues requested by Orthopedic Surgery. HISTORY OF PRESENT ILLNESS: This is a 63-year-old gentleman with a past medical history of DVT, hyperlipidemia, history of DJD, history pneumonia being for Dr. Stevens in the outpatient setting admitted with right shoulder arthroplasty. There is no history of fever or rigors. No history of headache, loss of consciousness, seizures at this time. PAST MEDICAL HISTORY: History of DVT, history of hyperlipidemia, history of DJD, history of pneumonia, history of prostate disorder. MEDICATIONS PRIOR TO ADMISSION: 1. Multivitamin 1 p.o. daily. 2. Magnesium 200 mg daily. 3. Krill oil 1000 mg daily. 4. 500 mg b.i.d. 5. Tylenol 1000 mg t.i.d. p.r.n. ALLERGIES: None. FAMILY HISTORY: History of cancer in the family. SOCIAL HISTORY: Remote history of smoking. No history of current smoking or alcohol intake. REVIEW OF SYSTEMS: ENT: No diminished vision or diminished hearing. CARDIOVASCULAR SYSTEM: As mentioned earlier. RESPIRATION: No cough. GI: No nausea. : No dysuria. NERVOUS SYSTEM: No numbness or weakness. ALLERGY/IMMUNOLOGY: No asthma. MUSCULOSKELETAL: As mentioned earlier. DERMATOLOGY: As mentioned earlier. ENDOCRINE: No history of diabetes or hypothyroidism. CONSTITUTIONAL: As mentioned earlier. DERMATOLOGY: Negative. RHEUMATOLOGY: As mentioned earlier. PSYCHIATRY: As mentioned earlier. PHYSICAL EXAM: Patient is alert and oriented x3. Pulse 79, blood pressure 139/70, respiration 16, temperature normal, pulse ox 99% on 2 L. HEENT: Conjunctivae normal. NECK: No jugular venous distention. CARDIOVASCULAR: S1, S2, muffled. RESPIRATORY: Breath sounds diminished in the bases, no rhonchi, no crackles. ABDOMEN: Soft, nontender. No mass palpable. LEGS: No edema. No swelling. NERVOUS SYSTEM: Higher functions as mentioned earlier, moves all 4 limbs, no focal deficits. LYMPHATICS: No lymph node enlargement in the neck or axillae. SKIN: No ulcer, rash, bleeding. SHOULDER: Status post right shoulder arthroplasty. LAB INVESTIGATIONS: At this time shows the previous labs are reviewed and within normal limits. ASSESSMENT: 1. Status post right shoulder surgery and right shoulder arthroplasty. 2. History of deep vein thrombosis. 3. Hyperlipidemia. 4. Degenerative joint disease. 5. History of pneumonia. 6. History of prostate disorder. 7. History of diverticulitis. 8. Remote history of nicotine dependence. RECOMMENDATION: This 63-year-old gentleman who presented with multiple medical issues, at this time I recommend to continue current management and symptomatic treatment. Otherwise, at this time I recommend continue with the pain management, DVT prophylaxis, incentive spirometry. Repeat labs and patient may be asked to follow up with Dr. Stevens closely after discharge. Thank you, Dr. Guzmán, for letting us participate in this patient's care. KENDALLL / ADRYN: [id number] / MTDD
== END 2018-09-21 12:17 | disposition home or self-care (01) | DRG 483 ==
LOC: 2ORMAIN 12:40 → 4SSUR 18:11
PROVIDERS: ADMIT Orthopaedic Surgery Sports Medicine; ATTEND Orthopaedic Surgery Sports Medicine
PROC: 0LS30ZZ Reposition Right Upper Arm Tendon, Open Approach (ICD-10-PCS; 2018-09-20)
PROC: 0RRJ0JZ Replacement of Right Shoulder Joint with Synthetic Substitute, Open Approach (ICD-10-PCS; principal; 2018-09-20 14:55)
DX: M19.011 Primary osteoarthritis, right shoulder (principal); E78.5 Hyperlipidemia, unspecified; N42.9 Disorder of prostate, unspecified; H91.90 Unspecified hearing loss, unspecified ear; Z79.899 Other long term (current) drug therapy; Z87.891 Personal history of nicotine dependence; Z86.711 Personal history of pulmonary embolism; Z86.718 Personal history of other venous thrombosis and embolism; Z87.01 Personal history of pneumonia (recurrent); Z87.19 Personal history of other diseases of the digestive system; Z98.52 Vasectomy status; Z80.9 Family history of malignant neoplasm, unspecified
CPT/HCPCS: 64415; 80048; 85025; 88300

== ENCOUNTER → 2018-09-25 | Outpatient (CLI) | payer BC ==
--- NOTE | 2018-09-25 09:54 | CT ---
EXAMINATION TYPE: CT abdomen w con DATE OF EXAM: 09/25/2018 COMPARISON: CT abdomen pelvis September 15, [address] September 08, 2018. HISTORY: Adrenal mass, recent abnormal CT. CT DLP: 1281.10 mGycm, Automated Exposure Control for Dose Reduction was Utilized. CONTRAST: CT scan of the abdomen is performed with oral and without and with IV Contrast, patient injected with 100 ml mL of Isovue 300. Adrenal gland protocol FINDINGS: LUNG BASES: No significant abnormality is appreciated. LIVER/GB: 2 thin-walled cysts scattered throughout the liver, largest measuring 1.9 cm right hepatic lobe axial series 10 image 21 are redemonstrated. PANCREAS: No significant abnormality is seen. SPLEEN: No significant abnormality is seen. ADRENALS: There is 1.6 x 1.3 cm anterior limb left adrenal low dense mass. Hounsfield units average - [address] with enhancement to 27 on postcontrast images and washout to -11 on delayed imag es. Right adrenal gland is normal in size. KIDNEYS: Noncontrast images show no renal calculi bilaterally. Postcontrast images show symmetric cor tical medullary uptake and excretion without suspicious solid or cystic mass or hydronephrosis. BOWEL: Oral contrast does not reach colonic level. There is no suspicious small or large bowel dilata tion. Some diverticula in the mid to distal left colon visualized proximal sigmoid colon are noted. N ormal-appearing appendix from right lower quadrant is partially imaged. LYMPH NODES: No greater than 1cm abdominal lymph nodes are appreciated. OSSEOUS STRUCTURES: Multilevel spurring in the thoracolumbar spine is seen. 6 lumbar type vertebra in cidentally noted. OTHER: No significant additional abnormality is seen. IMPRESSION: Enlarging 1.6 cm left adrenal mass from [address] imaging characteristics consistent with benign lipid rich adenoma as detailed above.
== END | disposition home or self-care (01) ==
LOC: RADCTMAIN 08:03
PROVIDERS: ATTEND Family Medicine
DX: E27.9 Disorder of adrenal gland, unspecified (principal)
CPT/HCPCS: 74160; Q9967

== ENCOUNTER 2019-08-07 08:31 | Day surgery (SDC) | payer BC, MEDICARE ==
[2019-08-07 10:02] VITALS: TEMP 98
[2019-08-07] MEDS ORDERED: LIDOCAINE 1% 20 ML VIAL (10MG/ML) FOR IV START INTRADERMA PRN (10:02)
[2019-08-07] MEDS ORDERED: LACTATED RINGERS 1,000 ML IV SCH (10:02)
[2019-08-07] MEDS ORDERED: PROPOFOL 10 MG/ML 20 ML VIAL IV ONE (10:27)
--- NOTE | 2019-08-07 11:03 | P.PCN ---
Date of Procedure: 08/07/19 Description of Procedure: BRIEF HISTORY: Patient is a 64-year-old male presenting for outpatient colonoscopy for screening for malignant neoplasm of the colon. Last colonoscopy approximately 3 years ago per his recollection, at which time patient reports polyps were removed. Denies any change in bowel habits, blood per rectum or abdominal pain. No family history of colon cancer. PROCEDURE PERFORMED: Colonoscopy with polypectomy. PREOPERATIVE DIAGNOSIS: Screening for malignant neoplasm colon, last colonoscopy 3 years ago per patient report (he states polyps removed at that time). ESTIMATED BLOOD LOSS: Minimal. IV sedation per Anesthesia. PROCEDURE: After informed consent was obtained, the patient, was brought into the endoscopy unit. IV sedation was administered by Anesthesia under continuous monitoring. Digital rectal examination was normal. Initially the Olympus CF-190 flexible video colonoscope was then inserted in the rectum, gradually advanced into the cecum without any difficulty. Careful examination was performed as the scope was gradually being withdrawn. Ileocecal valve and the appendiceal orifice were visualized and appeared normal. The terminal ileum was intubated and appeared normal. Prep was excellent. Mucosa of the cecum, ascending colon, transverse colon, descending colon, sigmoid colon, and rectum appeared normal. Multiple small and large mouth diverticula in the left colon. Diminutive 2 mm rectal polyp removed with cold forcep polypectomy. Retroflexion was performed in the rectum and no lesions were seen. The patient tolerated the procedure well. IMPRESSION: Diminutive rectal polyp removed with cold forcep polypectomy. Moderate left colonic diverticulosis. RECOMMENDATIONS: Findings of this examination were discussed with the patient. Okay to resume diet. Okay to resume medications. Await pathology from polypectomy. Recommend repeat colonoscopy in 5 years given personal history of colon polyps.
[2019-08-07 11:29] VITALS: BP 124/71; PULSE 70; RESP 14
== END 2019-08-07 11:33 ==
LOC: ORWHC2ENDO 08:31
PROVIDERS: ATTEND Internal Medicine
DX: Z12.11 Encounter for screening for malignant neoplasm of colon (principal); K62.1 Rectal polyp; K57.30 Diverticulosis of large intestine without perforation or abscess without bleeding; Z86.010 Personal history of colon polyps; Z87.891 Personal history of nicotine dependence; Z98.52 Vasectomy status; Z96.651 Presence of right artificial knee joint; Z98.890 Other specified postprocedural states; Z82.49 Family history of ischemic heart disease and other diseases of the circulatory system; Z83.3 Family history of diabetes mellitus
CPT/HCPCS: 88305; 45380; J2704

== ENCOUNTER → 2023-05-18 | Outpatient (CLI) | payer MEDICARE ==
[2023-05-18 20:43] LABS: Chol/HDL Ratio 3.65 Ratio
== END | disposition home or self-care (01) ==
LOC: LABWHC1 14:08
PROVIDERS: ATTEND Family Medicine
DX: E78.5 Hyperlipidemia, unspecified (principal)
CPT/HCPCS: 36415; 80061

== ENCOUNTER → 2023-06-20 | Outpatient (CLI) | payer MEDICARE ==
--- NOTE | 2023-06-20 07:37 | US ---
EXAMINATION TYPE: US duplex aorta DATE OF EXAM: 06/20/2023 COMPARISON: NONE CLINICAL INDICATION: Male, 68 years old with history of Z13.6 ENCOUNTER FOR SCREENING FOR CARDIOVASCU LAR D; TECHNIQUE: Multiple sonographic images of the abdominal aorta are obtained. FINDINGS: EXAM MEASUREMENTS: Abdominal Aorta: Proximal: 2.6 x 2.8cm Mid: 2.3 x 2.3cm Distal: 2.1 x 2.2cm Right Iliac: 1.3 x 1.4cm Left Iliac: 1.3 x 1.3cm Limited views of proximal aorta appears ectatic IMPRESSION: No evidence for abdominal aortic aneurysm.
== END | disposition home or self-care (01) ==
LOC: RADUSWWP 06:46
PROVIDERS: ATTEND Family Medicine
DX: Z13.6 Encounter for screening for cardiovascular disorders (principal)
CPT/HCPCS: 76706